=== PATIENT | male | born 1985 | race Caucasian/White ===

== ENCOUNTER 2019-04-08 08:46 | Day surgery (SDC) | payer BC ==
[2019-04-04 14:34] VITALS: BMI 43.5
[2019-04-08] MEDS ORDERED: PROPOFOL 20 ML ONE ×2 (08:48)
[2019-04-08] MEDS ORDERED: MIDAZOLAM HCL 2 MG/2 ML SINGLE DOSE VIAL ONE ×2 (08:53)
[2019-04-08] MEDS ORDERED: GLYCOPYRROLATE 0.2 MG/1 ML VIAL ONE (08:53)
[2019-04-08 09:36] VITALS: TEMP 98.2
[2019-04-08 10:04] VITALS: BP 110/66; PULSE 70
--- NOTE | 2019-04-11 17:43 | PATH ---
Surgical Pathology Report Patient Name: TOÑO ACHARYA [facility]. Rec. #: [id number] /Age/Gender: 1985 (Age: 33) / M Account: [id number] Location: [facility] Taken: 04/08/2019 Received: 04/08/2019 Reported: 04/11/2019 Physicians: DESTINY MENA Specimen(s) Received A: DUODENUM B: STOMACH C: ESOPHAGUS Clinical History Vomiting Postoperative diagnosis: Gastritis, duodenitis Final Diagnosis A. DUODENUM, BIOPSY: DUODENAL MUCOSA WITH MILD ACUTE AND CHRONIC DUODENITIS. B. STOMACH, BIOPSY: SUPERFICIAL FRAGMENTS OF GASTRIC MUCOSA WITH SEVERE CHRONIC ACTIVE GASTRITIS. IMMUNOHISTOCHEMICAL STAIN FOR H. PYLORI IS POSITIVE (MANY). C. ESOPHAGUS, BIOPSY: SQUAMOUS MUCOSA WITH CHANGES OF MILD REFLUX TYPE ESOPHAGITIS. Immunohistochemical stain performed at [place], [place] ([id number]) and interpreted at [facility]. Positive and negative controls (internal if applicable) show appropriate results. Electronically Signed Olga Lidia Murry M.D. Gross Description A. Received in formalin, labeled "biopsy duodenum" are 3 long, irregular portions of soft tissue ranging from 0.1-0.4 cm. in greatest dimension. The specimens are submitted in toto in one cassette. B. Received in formalin, labeled "biopsy stomach" are 2 long, irregular portions of soft tissue measuring 0.1 and 0.2 cm. in greatest dimension. The specimens are submitted in toto in one cassette. C. Received in formalin, labeled "biopsy esophagus" is a long, irregular portion of soft tissue measuring 0.5 cm. in greatest dimension. The specimen is submitted in toto in one cassette. /04/09/2019 saudi/04/09/2019
== END 2019-04-08 10:18 | disposition home or self-care (01) ==
LOC: FASU-ENDO 08:46
PROVIDERS: ATTEND Internal Medicine Gastroenterology
PROC: 0DB78ZX Excision of Stomach, Pylorus, Via Natural or Artificial Opening Endoscopic, Diagnostic (ICD-10-PCS; 2019-04-08)
PROC: 0DB98ZX Excision of Duodenum, Via Natural or Artificial Opening Endoscopic, Diagnostic (ICD-10-PCS; principal; 2019-04-08 09:16)
DX: K29.80 Duodenitis without bleeding (principal); K29.50 Unspecified chronic gastritis without bleeding; K21.0 Gastro-esophageal reflux disease with esophagitis; B96.81 Helicobacter pylori [H. pylori] as the cause of diseases classified elsewhere
CPT/HCPCS: 88305-TC